=== PATIENT | female | born 1995 | race Caucasian/White ===

== ENCOUNTER 2018-01-21 01:19 | Emergency (ER) | payer OTHER ==
[~2018-01-21] VITALS: Ht 162.6 cm; Wt 57.3 kg
[2018-01-21 01:27] VITALS: TEMP 98
[2018-01-21] MEDS ORDERED: BUSPAR10 MG PO (01:59)
[2018-01-21] MEDS ORDERED: JUNEL 1/20 20 M1 TAB (01:59)
[2018-01-21 02:00] VITALS: BP 136/90; PULSE 83
[2018-01-21] MEDS ORDERED: CELEXA 20MG20 MG/TAB PO (02:00)
== END 2018-01-21 02:08 | disposition home or self-care (01) ==
LOC: COL.ER 01:19
DX: S16.1XXA Strain of muscle, fascia and tendon at neck level, initial encounter (principal); F41.9 Anxiety disorder, unspecified; Z87.728 Personal history of other specified (corrected) congenital malformations of nervous system and sense organs; Z98.890 Other specified postprocedural states; V43.52XA Car driver injured in collision with other type car in traffic accident, initial encounter; Y93.I9 Activity, other involving external motion